=== PATIENT | female | born 1955 | race Caucasian/White ===

== ENCOUNTER 2018-01-09 11:34 | Day surgery (SDC) | payer BC ==
[2018-01-09] MEDS ORDERED: LR 1,000 ML IV ×2 (13:00→16:30)
[2018-01-09] MEDS ORDERED: LIDOCAINE 1% MDV 20ML VIAL SQ (13:00)
[2018-01-09] MEDS ORDERED: PROPOFOL 200 MG/20 ML VIAL As Ordered ×2 (14:24→15:58)
[2018-01-09] MEDS ORDERED: MIDAZOLAM INJ 2 MG/2 ML VIAL (J2250) As Ordered (14:24)
[2018-01-09] MEDS ORDERED: fentaNYL 100 MCG/2 ML INJECTION (J3010) As Ordered (14:24)
[2018-01-09] MEDS ORDERED: LIDOCAINE 2% INJ 100 MG/5 ML SDV (FOR ANES.) As Ordered (14:24)
[2018-01-09] MEDS: LIDOCAINE 1% MDV 20ML VIAL As Ordered (15:07)
[2018-01-09] MEDS: BUPIVACAINE HCL 0.5% 10 ML VIAL As Ordered (15:07)
[2018-01-09] MEDS ORDERED: ONDANSETRON 4MG/2ML VIAL (J2405) As Ordered (15:17)
[2018-01-09] MEDS ORDERED: dexameTHASONE 4 MG/ML 1ML VIAL (J1100) As Ordered (15:17)
[2018-01-09] MEDS ORDERED: KETOROLAC 60 MG/2 ML VIAL (J1885) As Ordered (15:17)
[2018-01-09] MEDS: dexameTHASONE 4 MG/ML 1ML VIAL (J1100) As Ordered (15:55)
[2018-01-09] MEDS ORDERED: fentaNYL 100 MCG/2 ML INJECTION (J3010) IV (16:30)
[2018-01-09] MEDS ORDERED: ONDANSETRON 4MG/2ML VIAL (J2405) IV (16:30)
[2018-01-09] MEDS ORDERED: PERCOCET 5MG/325MG TAB PO (16:30)
== END 2018-01-09 17:02 | disposition home or self-care (01) ==
LOC: M SDC 11:34
DX: M20.21 Hallux rigidus, right foot (principal); E78.00 Pure hypercholesterolemia, unspecified; M85.80 Other specified disorders of bone density and structure, unspecified site; G47.00 Insomnia, unspecified; I77.810 Thoracic aortic ectasia; B00.9 Herpesviral infection, unspecified; D47.3 Essential (hemorrhagic) thrombocythemia; H04.129 Dry eye syndrome of unspecified lacrimal gland; D64.9 Anemia, unspecified; N18.3 Chronic kidney disease, stage 3 (moderate); R23.3 Spontaneous ecchymoses; Z79.899 Other long term (current) drug therapy; Z79.82 Long term (current) use of aspirin
CPT/HCPCS: 28291

== ENCOUNTER 2018-05-08 07:06 | Day surgery (SDC) | payer BC ==
[2018-05-08] MEDS ORDERED: LIDOCAINE 2% INJ 100 MG/5 ML SDV (FOR ANES.) As Ordered (07:11)
[2018-05-08] MEDS ORDERED: PROPOFOL 200 MG/20 ML VIAL As Ordered ×2 (07:11→08:31)
[2018-05-08] MEDS: NS 1,000 ML IV (07:15)
== END 2018-05-08 09:15 | disposition home or self-care (01) ==
LOC: M OPP 07:06
DX: Z12.11 Encounter for screening for malignant neoplasm of colon (principal); K64.0 First degree hemorrhoids; K57.30 Diverticulosis of large intestine without perforation or abscess without bleeding
CPT/HCPCS: 45378

== ENCOUNTER → 2020-10-15 | Outpatient (REF) | payer MEDICARE ==
[~2020-10-15] MED LIST: ANAG0.5C PO; ASPI81TA26 PO; CALC1TAB26 PO; HYDR-3713 PO; MULTCAP PO; VITA100067 PO; VITATAB11 PO
[2020-10-15 17:55] LABS: APPEARANCE, URINE CLEAR (CLEAR); BACTERIA, URINE AUTO NEGATIVE (NEGATIVE); BILIRUBIN, URINE AUTO NEGATIVE (NEGATIVE); BLOOD, URINE BLOOD NEGATIVE (NEGATIVE); COLOR, URINE STRAW (YELLOW); GLUCOSE, URINE (UA) AUTO NEGATIVE (NEGATIVE); KETONE, URINE AUTO NEGATIVE (NEGATIVE); LEUKOCYTE ESTERASE, URINE AUTO NEGATIVE (NEGATIVE); NITRITE, URINE AUTO NEGATIVE (NEGATIVE); PROTEIN, URINE AUTO NEGATIVE (NEGATIVE); RBC, URINE AUTO 0 /HPF (0-3); SPECIFIC GRAVITY URINE AUTO 1.002 (1.002-1.035); SQUAMOUS EPITHELIAL CELL UR AU 0 /HPF (0-6); UROBILINOGEN, URINE AUTO 0.2 mg/dL (0.0-2.0); WBC, URINE AUTO 0 /HPF (0-3)
== END ==
LOC: M LAB REF 16:54
PROVIDERS: ATTEND Family Medicine
DX: N18.30 Chronic kidney disease, stage 3 unspecified (principal); Z79.899 Other long term (current) drug therapy

== ENCOUNTER → 2020-11-16 | Outpatient (REF) | payer MEDICARE ==
[2020-11-16 18:39] LABS: FOLATE 20.2 NG/ML
== END ==
LOC: M LAB REF 16:56
PROVIDERS: ATTEND Family Medicine
DX: D47.3 Essential (hemorrhagic) thrombocythemia (principal)

== ENCOUNTER 2022-12-21 11:54 | Emergency (ER) | payer MEDICARE ==
[~2022-12-21] VITALS: Ht 152.4 cm; Wt 61.1 kg
[2022-12-21 11:55] VITALS: TEMP 98.1
[2022-12-21 12:25] LABS: BASO % 0.4 % (0.0-1.0); EOS % 0.5 % (0.0-3.0); HEMATOCRIT 36.6 % (36.0-47.0); HEMOGLOBIN 12.4 g/dl (12.0-15.5); LYMPH # 1.2 10^3/uL (1.5-5.0); LYMPH % 22.4 % (24.0-44.0); MEAN CORPUSCULAR HEMOGLOBIN 35.3 pg (27.0-33.0); MEAN CORPUSCULAR HGB CONC 33.9 g/dl (32.0-36.5); MEAN CORPUSCULAR VOLUME 104.3 fl (80.0-96.0); MONO # 0.4 10^3/uL (0.0-0.8); MONO % 7.2 % (2.0-8.0); NEUTROPHILS # 3.8 10^3/uL (1.5-8.5); NEUTROPHILS % 69.1 % (36.0-66.0); PLATELET COUNT, AUTOMATED 278 10^3/uL (150-450); RED BLOOD COUNT 3.51 10^6/uL (4.00-5.40); WHITE BLOOD COUNT 5.5 10^3/uL (4.0-10.0)
[2022-12-21 12:43] LABS: CK-MB VALUE MASS 2.4 NG/ML (<3.6)
[2022-12-21 12:45] LABS: BLOOD UREA NITROGEN 19 MG/DL (9-23); CARBON DIOXIDE LEVEL 26 MMOL/L (20-31); CHLORIDE LEVEL 107 MMOL/L (98-107); CPK CREATINE PHOSPHOKINASE 111 U/L (34-145); CREATININE FOR GFR 0.93 MG/DL (0.55-1.30); GLOMERULAR FILTRATION RATE > 60.0 (>45); GLUCOSE, FASTING 112 MG/DL (74-106); MB/CK RELATIVE INDEX 2.16 (< OR =4); POTASSIUM SERUM 4.5 MMOL/L (3.5-5.1); SODIUM LEVEL 139 MMOL/L (136-145)
[2022-12-21] MEDS ORDERED: FAMOTIDINE 20MG/2ML VIAL IVP ONE (15:10)
[2022-12-21] MEDS ORDERED: SUCRALFATE 1 GM TAB PO ONE (15:10)
[2022-12-21] MEDS ORDERED: ISOVUE-370 76% 100ML VIAL As Ordered ONE (15:14)
[2022-12-21 16:12] LABS: CK-MB VALUE MASS < 1.0 NG/ML (<3.6)
[2022-12-21 16:14] LABS: CPK CREATINE PHOSPHOKINASE 104 U/L (34-145); MB/CK RELATIVE INDEX 0.96 (< OR =4)
[2022-12-21 16:30] VITALS: BP 149/62; O2SAT 98
[2022-12-21] MEDS ORDERED: PRIL20TA2 PO (17:04)
== END 2022-12-21 17:15 | disposition home or self-care (01) ==
LOC: M ED 11:54
DX: R07.9 Chest pain, unspecified (principal); I10 Essential (primary) hypertension; I44.4 Left anterior fascicular block; E78.5 Hyperlipidemia, unspecified; Z79.82 Long term (current) use of aspirin; Z79.810 Long term (current) use of selective estrogen receptor modulators (SERMs); Z79.899 Other long term (current) drug therapy
CPT/HCPCS: 71045; 71275; 80048; 82550; 82553; 84484; 85025; 93005; 96374; 99284; Q9967

== ENCOUNTER → 2025-03-31 | Outpatient (CLI) | payer MEDICARE ==
[~2025-03-31] MED LIST changes: +PRIL20TA2 PO
== END ==
LOC: M RAD 08:51
PROVIDERS: ATTEND Physician Assistant Medical
DX: R10.13 Epigastric pain (principal)

== ENCOUNTER → 2025-05-05 | Outpatient (CLI) | payer MEDICARE | LOC: M WUC 10:32 | DX: M25.531 Pain in right wrist (principal); M79.641 Pain in right hand ==

== ENCOUNTER 2025-05-10 00:02 | Emergency (ER) | payer MEDICARE ==
[~2025-05-10] VITALS: Ht 152.4 cm; Wt 58.2 kg
[2025-05-10 00:58] LABS: BASO # 0.0 10^3/uL (0.0-0.2); BASO % 0.5 % (0.0-1.0); EOS # 0.1 10^3/uL (0.0-0.5); EOS % 1.3 % (0.0-3.0); LYMPH # 2.5 10^3/uL (1.5-5.0); LYMPH % 29.3 % (24.0-44.0); MONO # 0.6 10^3/uL (0.0-0.8); MONO % 6.4 % (2.0-8.0); NEUTROPHILS # 5.4 10^3/uL (1.5-8.5); NEUTROPHILS % 62.2 % (36.0-66.0); PLATELET COUNT, AUTOMATED 424 10^3/uL (150-450)
[2025-05-10 00:59] LABS: ALT/SGPT 26 U/L (7.0-40); AST/SGOT 25 U/L (<34); CALCIUM LEVEL 10.1 MG/DL (8.3-10.6); CARBON DIOXIDE LEVEL 29 MMOL/L (20-31); CHLORIDE LEVEL 103 MMOL/L (98-107); CREATININE FOR GFR 1.16 MG/DL (0.55-1.30); GLOMERULAR FILTRATION RATE 50.7 (>39); POTASSIUM SERUM 4.5 MMOL/L (3.5-5.1); SODIUM LEVEL 141 MMOL/L (136-145)
[2025-05-10] MEDS ORDERED: ISOVUE-370 76% 100 ML VIAL As Ordered ONE (04:17)
[2025-05-10] MEDS: NS 500 ML IV ONE (04:45)
[2025-05-10] MEDS: D5W/0.45% SODIUM CHLORIDE 1,000 ML IV ONE (07:37)
[2025-05-10 12:01] VITALS: BP 145/79; TEMP 96.7; O2SAT 96
== END 2025-05-10 12:03 | disposition home or self-care (01) ==
LOC: M ED 00:02
DX: R10.9 Unspecified abdominal pain (principal); R11.2 Nausea with vomiting, unspecified; K21.9 Gastro-esophageal reflux disease without esophagitis; N28.89 Other specified disorders of kidney and ureter; Z79.899 Other long term (current) drug therapy
CPT/HCPCS: 36415; 74177; 74181; 80048; 80076; 83690; 85025; 96374; 99285; Q9967